=== PATIENT | male | born 1990 | race Caucasian/White ===

== ENCOUNTER 2018-01-02 14:28 | Emergency (ER) | payer BC, OTHER ==
[~2018-01-02] VITALS: Ht 175.3 cm; Wt 63.5 kg
--- NOTE | ~2018-01-02 | EKG ---
[place] [address] [facility] [place] [address] ELECTROCARDIOGRAM REPORT Name: WANDA COLORADO [facility] [id number] Admission: 01/02/18 Attend Phys: Discharge: Date of : 89 Report #: [id number] THIS REPORT FOR: //name// [facility] ED Test Date: 2018-01-02 Test Time: 14:46:58 Pat Name: WANDA COLORADO Department: Room: Gender: M Branch Or Department Chief Librarian: BALJITAsha : 1990 Requested By: Patt Downing Order Number: [id number] MD: Tio Singh Measurements Intervals [place] Rate: 118 P: 59 CA: 146 QRS: 44 QRSD: 99 T: 51 QT: 327 QTc: 459 Interpretive Statements Sinus tachycardia ST elev, probable normal early repol pattern No previous ECG available for comparison Electronically Signed On 01-02-2018 16:42:51 VOLUNTEER SERVICES SUPERVISOR by Tio Singh [email or web address] <ELECTRONICALLY SIGNED> By: Tio Singh MD 01/02/18 1642 1446 1446 MD JENNIFER Daigle
--- NOTE | ~2018-01-02 | EKG ---
[address] [address] ELECTROCARDIOGRAM REPORT Name: LANDENJCWANDA MENDEZ [facility] [id number] Admission: 01/02/18 Attend Phys: Discharge: Date of : [birth year] Report #: [id number] THIS REPORT FOR: //name// [facility] ED Test Date: 2018-01-02 Test Time: 14:36:06 Pat Name: WANDA COLORADO Department: Room: Gender: Medicaid Biller: BALJITAsha : 1990 Requested By: Patt Downing Order Number: [id number] MD: Tio Singh Measurements Intervals [place] Rate: 221 P: AR: QRS: 54 QRSD: 81 T: 61 QT: 245 QTc: 471 Interpretive Statements SVT Electronically Signed On 01-02-2018 16:42:37 DIESEL ENGINE TESTER by Tio Singh [email or web address] <ELECTRONICALLY SIGNED> By: Tio Singh MD 01/02/18 1642 1436 1436 Tio Singh MD /EPI
[2018-01-02] MEDS ORDERED: KLOR-CON 1010 MEQ PO (14:48)
[2018-01-02] MEDS ORDERED: HUMIRA10 MG/0.1 (14:49)
[2018-01-02] MEDS ORDERED: PRILOSEC 20 MG20 MG PO (14:50)
[2018-01-02 14:54] LABS: ABSOLUTE NEUTROPHILS 5.8 thou/uL (1.4-8.2); BASOPHILS 0.5 % (0.0-2.0); EOSINOPHILS 1.5 % (0.0-3.0); HEMATOCRIT 49.5 % (42.0-52.0); HEMOGLOBIN 17.2 gm/dL (14.0-18.0); LYMPHOCYTES 27.3 % (24.0-44.0); MCH 32.4 pg (26.0-34.0); MCHC 34.8 g/dL (28.0-37.0); MCV 93.1 fL (80.0-100.0); MONOCYTES 9.1 % (1.0-8.0); PLATELET COUNT 227 thou/uL (150-400); POLYS 61.6 % (36.0-66.0); RBC 5.32 mil/uL (4.50-6.00); WBC 9.4 thou/uL (4.0-11.0)
[2018-01-02 14:58] LABS: ANION GAP 9 mmol/L (7-16); BUN 11 mg/dL (7-18); CALCIUM 9.7 mg/dL (8.5-10.1); CHLORIDE 101 mmol/L (98-107); CO2 30 mmol/L (21-32); CREATININE 1.2 mg/dL (0.7-1.3); GLUCOSE 112 mg/dL (74-106); POTASSIUM 3.5 mmol/L (3.5-5.1); SODIUM 140 mmol/L (136-145)
[2018-01-02 15:07] LABS: TROPONIN-I <0.06 ng/mL (<0.06)
[2018-01-02 15:46] LABS: AMP/METHAMP Negative (Negative); BARBITURATES Negative (Negative); BENZODIAZEPINES Negative (Negative); COCAINE Negative (Negative); METHADONE Negative (Negative); OPIATES Negative (Negative); PCP Negative (Negative)
[2018-01-02] MEDS ORDERED: LOPRESSOR25 PO (16:16)
== END 2018-01-02 16:45 | disposition home or self-care (01) ==
LOC: ER 14:28
PROVIDERS: Student in an Organized Health Care Education/Training Program
DX: I47.1 Supraventricular tachycardia (principal); F17.210 Nicotine dependence, cigarettes, uncomplicated; K50.90 Crohn's disease, unspecified, without complications; Z87.442 Personal history of urinary calculi

== ENCOUNTER → 2018-01-16 | Outpatient (CLI) | payer BC, OTHER ==
[~2018-01-16] MED LIST: HUMIRA10 MG/0.1; KLOR-CON 1010 MEQ PO; LOPRESSOR25 PO; PRILOSEC 20 MG20 MG PO
--- NOTE | ~2018-01-16 | 2DMMODE ---
[facility] [place] [address] 2 D/M-MODE ECHOCARDIOGRAM Name: WANDA COLORADO Room #: [facility]#: [id number] Admission: 01/16/18 Attend Phys: Tio Singh Discharge: Date of : 89 Date of Service: 01/16/18 1551 Report #: [id number] THIS REPORT FOR: //name// APPROVED REPORT Study performed: 01/16/2018 15:01:31 EXAM: Comprehensive 2D, Doppler, and color-flow Echocardiogram Patient Location: Out-Patient Status: routine BSA: 1.78 HR: 79 bpm BP: 140/78 mmHg Other Information Study Quality: Good Indications SVT 2D Dimensions RVDd: 25.03 mm IVSd: 7.75 (7-11mm) LVOT Diam: 25.62 (18-24mm) LVDd: 48.48 mm PWd: 9.25 (7-11mm) Ascending Ao: 28.30 (22-36mm) LVDs: 33.39 (25-40mm) Aortic Root: 29.18 mm IVC: 12.00 mm Volumes Left Atrial Volume (Systole) Single Plane 4CH: 20.65 mL Single Plane 2CH: 31.76 mL LA ESV Index: 17.00 mL/m2 Aortic Valve AoV Peak Nile.: 1.01 m/s AO Peak Gr.: 4.06 mmHg LVOT Max P.08 mmHg LVOT Max V: 0.88 m/s EDYTA Vmax: 4.49 cm2 Mitral Valve E/A Ratio: 1.4 MV Decel. Time: 152.45 ms MV E Max Nile.: 0.77 m/s MV A Nile.: 0.55 m/s [facility] [place] [address] 2 D/M-MODE ECHOCARDIOGRAM Name: WANDA COLORADO Room #: [facility]#: [id number] Admission: 01/16/18 Attend Phys: Tio Singh Discharge: Date of : 89 Date of Service: 01/16/18 1551 Report #: [id number] MV PHT: 44.21 ms IVRT: 89.97 ms Pulmonary Valve PV Peak Nile.: 1.01 m/s PV Peak Gr.: 4.08 mmHg Pulmonary Vein P Vein S: 0.79 m/s P Vein A: 0.10 m/s P Vein D: 0.55 m/s P Vein A Dur.: 78.4 msec P Vein S/D Ratio: 1.44 Tricuspid Valve TR Peak Nile.: 2.12 m/s RAP Estimate: 5.00 mmHg TR Peak Gr.: 17.97 mmHg PA Pressure: 23.00 mmHg Left Ventricle The left ventricle is normal size. There is normal left ventricular wall thickness. The left ventricular systolic function is normal. The left ventricular ejection fraction is within the normal range. LVEF is 60-65%. The left ventricular diastolic function is normal. Right Ventricle The right ventricle is normal size. The right ventricular systolic function is normal. Atria The left atrium size is normal. The right atrium size is normal. Aortic Valve The aortic valve is normal in structure. No aortic regurgitation is present. There is no aortic valvular stenosis. Mitral Valve The mitral valve is normal in structure. Trace mitral regurgitation. No evidence of mitral valve stenosis. Tricuspid Valve The tricuspid valve is normal in structure. Trace tricuspid regurgitation. PAP is estimated at 23 mmHg. Pulmonic Valve The pulmonary valve is normal in structure. Trace to mild pulmonic regurgitation. [address] [address] 2 D/M-MODE ECHOCARDIOGRAM Name: LANDENJCVANESSAWANDA PAULINE Room #: REG Jean-Paul#: [id number] Admission: 01/16/18 Attend Phys: [facility] Discharge: Date of : 89 Date of Service: 01/16/18 1551 Report #: [id number] Great Vessels The aortic root is normal in size. IVC is normal in size and collapses >50% with inspiration. Pericardium There is no pericardial effusion. <Conclusion> The left ventricle is normal size. There is normal left ventricular wall thickness. The left ventricular systolic function is normal. The left ventricular diastolic function is normal. The right ventricle is normal size. The left atrium size is normal. The right atrium size is normal. The aortic valve is normal in structure. Trace mitral regurgitation. Trace tricuspid regurgitation. PAP is estimated at 23 mmHg. <ELECTRONICALLY SIGNED> By: Brian Ambrocio MD 01/16/18 155 [id number] 155 Brian Ambrocio MD /INF
== END ==
LOC: CV 08:22
DX: I47.1 Supraventricular tachycardia (principal)

== ENCOUNTER → 2018-01-18 | Outpatient (CLI) | payer BC, OTHER ==
[~2018-01-18] VITALS: Ht 175.3 cm; Wt 63.5 kg
[~2018-01-18] MED LIST changes: +ASPIR 8181 MG PO
--- NOTE | ~2018-01-18 | P ---
[facility] [place] [address] PROCEDURE REPORT Name: WANDA COLORADO Room #: REG [facility]#: [id number] Admission: 01/18/18 Attend Phys: Tio Singh MD Discharge: Date of : [birth year] Report #: [id number] THIS REPORT FOR: //name// CC: [facility] physician/PCP Tio Singh PREOPERATIVE DIAGNOSIS: SVT. 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 PROCEDURES PERFORMED: 1. SVT ablation, CPT code 95861. 2. EP with left atrial pacing and recording, CPT code 54330. 3. 3D mapping, CPT code 39667. HISTORY OF PRESENT ILLNESS: The patient is a 27-year-old male who had an episode of palpitations and was found to be in supraventricular tachycardia and it was terminated with IV adenosine. He is here for SVT ablation. ANESTHESIA: The patient underwent MAC anesthesia with no anesthesia related complications. PROCEDURE: The patient underwent informed consent where we discussed the details of the procedure including the risks, which include but not limited to bleeding, vascular damage, cardiac perforation as well as stroke or NE. He understood these risks and is willing to proceed. The patient was brought to the EP laboratory in a fasting and unsedated state and prepped and draped in a sterile fashion. Preablation, the patient was in sinus rhythm with a resting heart rate of 100-110 beats per minute. I then obtained access to the bilateral femoral veins. I injected lidocaine prior to access and placed an 8 and 6-Honduran short sheath in the right femoral vein and a 6 and 7-Honduran short sheath in the left femoral vein using the modified Seldinger technique. Next, three quadripolar catheters were placed at the HRA, His and RV position and decapolar catheter was easily positioned into the coronary sinus. Next a basic EP study was performed. At baseline, the patient was in sinus rhythm with a sinus cycle length of 520 milliseconds, LA interval 120 milliseconds, QRS duration 98 milliseconds, QT interval 360 milliseconds, AH interval 90 milliseconds and HV interval of 35 milliseconds. Of note, with catheter manipulation, the patient went into SVT with a tachycardia cycle length of 290 milliseconds, a septal VA time of 35 milliseconds. I attempted to entrain this, but I terminated it. Next, I continued with my EP study and atrial pacing was performed from the high right atrium and the left atrium via the coronary sinus catheter. AV block was noted at 260 milliseconds. Atrial ERP was noted at 170 milliseconds at a [address] cycle length. Next with double atrial extrastimuli, the [facility] [address] [place] [address] PROCEDURE REPORT Name: WANDA COLORADO PAULINE Room #: REG [facility] Jean-Paul#: [id number] Admission: 01/18/18 Attend Phys: Tio Singh MD Discharge: Date of : 89 Report #: [id number] patient went into SVT again with a tachycardia cycle length of 290 milliseconds and a septal VA time of 35 milliseconds. Ventricular entrainment was performed and there was a VAHV response consistent with typical AV edi reentrant tachycardia. I then terminated the tachycardia. Ventricular pacing was performed and VA block was noted at 260 milliseconds. Single ventricular extrastimuli were delivered and VA ERP was noted at 200 milliseconds at a [address] cycle length and VA conduction was both midline and decremental. 3D MAPPING AND ABLATION: Next, I removed by HRA catheter and the 8-Honduran short sheath and exchanged this for an SR0 sheath and a 4-mm Biosense Grace ablation catheter. Next, a detailed 3D map and geometry was created. I tagged the His bundle slow pathway and the coronary sinus ostium. Next, ablation was performed at 50 bain and 55 degrees. I performed three initial ablation lesions in the area of signals that were consistent with a slow pathway, but I did not get any significant junctionals. The patient did have sinus tachycardia, so I thought maybe this was making seeing junctional somewhat challenging. So I therefore performed post-ablation testing for a period of 30 minutes and then the patient went back into AV edi reentrant tachycardia again. Therefore, I went back in with the ablation catheter and performed additional four lesions, which were slightly higher than the other lesions. These had nice sharp signals consistent with slow pathway potential just outside of the coronary sinus ostium. These four lesions had frequent slow junctionals. Post-ablation testing was then performed again. We tested for a period of 30 minutes and could no longer induce SVT. AV block was noted at 260 milliseconds. AV edi ERP was noted at 210 milliseconds at a [address] cycle length. I performed aggressive atrial and ventricular pacing maneuvers. We continued with double extrastimuli, which had induced the tachycardia before and SVT was no longer inducible. I did not use isoproterenol as his heart rates were fast enough and his conduction was good enough at baseline. Post-ablation, the patient was in sinus rhythm with sinus cycle length of 460 milliseconds, LA interval 120 milliseconds, QRS duration 80 milliseconds, QT interval 300 milliseconds, AH interval 70 milliseconds and HV interval of 36 milliseconds. As such, all catheters and sheaths were pulled. Hemostasis was obtained and the patient awoke neurologically and hemodynamically intact. No complications and no significant bleeding. CONCLUSIONS: 1. Successful ablation of typical AV edi reentrant tachycardia. 2. Normal SA edi function. 3. Normal AV edi function. [facility] [address] [place] [address] PROCEDURE REPORT Name: WANDA COLORADO Room #: [facility] Jeong#: [id number] Admission: 01/18/18 Attend Phys: Tio Singh MD Discharge: Date of : 89 Report #: [id number] 4. Normal His-Purkinje function. 5. No other inducible arrhythmias. By: [id number] Tio Singh MD /nt
[2018-01-18 06:54] VITALS: BP 127/79
[2018-01-18 07:12] LABS: ABSOLUTE NEUTROPHILS 2.2 thou/uL (1.4-8.2); BASOPHILS 1.2 % (0.0-2.0); EOSINOPHILS 6.1 % (0.0-3.0); HEMATOCRIT 44.4 % (42.0-52.0); HEMOGLOBIN 15.4 gm/dL (14.0-18.0); LYMPHOCYTES 46.4 % (24.0-44.0); MCH 32.5 pg (26.0-34.0); MCHC 34.8 g/dL (28.0-37.0); MCV 93.3 fL (80.0-100.0); MONOCYTES 9.5 % (1.0-8.0); PLATELET COUNT 189 thou/uL (150-400); POLYS 36.8 % (36.0-66.0); RBC 4.75 mil/uL (4.50-6.00); RDW 12.1 % (10.5-14.5); WBC 6.1 thou/uL (4.0-11.0)
[2018-01-18 07:15] LABS: CALCIUM 9.7 mg/dL (8.5-10.1); POTASSIUM 3.7 mmol/L (3.5-5.1)
[2018-01-18 07:21] LABS: ALBUMIN 4.3 g/dL (3.4-5.0); TOTAL BILIRUBIN 0.4 mg/dL (<0.1-1.0); TOTAL PROTEIN 7.6 g/dL (6.4-8.2)
[2018-01-18 07:22] LABS: INR 1.1; PROTIME 11.1 Seconds (9.3-11.4)
== END | disposition home or self-care (01) ==
LOC: CATH 06:32
PROVIDERS: Internal Medicine Cardiovascular Disease
DX: I47.1 Supraventricular tachycardia (principal); F17.210 Nicotine dependence, cigarettes, uncomplicated; Z79.82 Long term (current) use of aspirin; Z79.899 Other long term (current) drug therapy; Z79.01 Long term (current) use of anticoagulants
CPT/HCPCS: 70005

== ENCOUNTER 2018-02-21 10:08 | Emergency (ER) | payer BC, OTHER ==
[~2018-02-21] VITALS: Ht 175.3 cm; Wt 63.5 kg
[2018-02-21 10:39] LABS: HEMATOCRIT 45.1 % (42.0-52.0); HEMOGLOBIN 15.5 gm/dL (14.0-18.0); MCH 32.2 pg (26.0-34.0); MCHC 34.4 g/dL (28.0-37.0); MCV 93.6 fL (80.0-100.0); RBC 4.82 mil/uL (4.50-6.00); RDW 11.8 % (10.5-14.5); WBC 5.5 thou/uL (4.0-11.0)
[2018-02-21 10:43] LABS: CALCIUM 9.1 mg/dL (8.5-10.1); POTASSIUM 3.8 mmol/L (3.5-5.1)
[2018-02-21 10:49] LABS: ALBUMIN 4.3 g/dL (3.4-5.0); TOTAL BILIRUBIN 0.3 mg/dL (<0.1-1.0); TOTAL PROTEIN 7.9 g/dL (6.4-8.2)
[2018-02-21] MEDS ORDERED: ZOFRAN ODT4 MG PO (11:46)
[2018-02-21] MEDS ORDERED: PERCOCET PO (11:46)
[2018-02-21 12:21] VITALS: BP 108/69
== END 2018-02-21 18:24 | disposition home or self-care (01) ==
LOC: ER 10:08
PROVIDERS: Emergency Medicine
DX: R11.0 Nausea (principal); N20.1 Calculus of ureter; F17.210 Nicotine dependence, cigarettes, uncomplicated

== ENCOUNTER 2018-06-16 17:42 | Emergency (ER) | payer BC, OTHER ==
[~2018-06-16] VITALS: Ht 175.3 cm; Wt 63.5 kg
[~2018-06-16 17:42] MED LIST changes: +PERCOCET PO; +ZOFRAN ODT4 MG PO
[2018-06-16 18:21] LABS: ABSOLUTE NEUTROPHILS 5.8 thou/uL (1.4-8.2); BASOPHILS 0.8 % (0.0-2.0); EOSINOPHILS 1.7 % (0.0-3.0); HEMATOCRIT 43.8 % (42.0-52.0); HEMOGLOBIN 15.1 gm/dL (14.0-18.0); LYMPHOCYTES 23.9 % (24.0-44.0); MCH 31.6 pg (26.0-34.0); MCHC 34.5 g/dL (28.0-37.0); MCV 91.4 fL (80.0-100.0); MONOCYTES 6.9 % (1.0-8.0); PLATELET COUNT 230 thou/uL (150-400); POLYS 66.7 % (36.0-66.0); RBC 4.79 mil/uL (4.50-6.00); RDW 11.7 % (10.5-14.5); WBC 8.7 thou/uL (4.0-11.0)
[2018-06-16 18:21] LABS: URINE BILIRUBIN NEGATIVE (Negative); URINE BLOOD 1+ (Negative); URINE CLARITY CLEAR; URINE COLOR YELLOW; URINE GLUCOSE-RANDOM* NEGATIVE (Negative); URINE KETONES NEGATIVE (Negative); URINE LEUKOCYTES TRACE (Negative); URINE NITRITE NEGATIVE (Negative); URINE PROTEIN (DIPSTICK) NEGATIVE (Negative); URINE UROBILINOGEN 0.2 E.U./dl (0.2-1.0)
[2018-06-16 18:22] LABS: CALCIUM 9.1 mg/dL (8.5-10.1); POTASSIUM 3.8 mmol/L (3.5-5.1)
[2018-06-16 18:27] LABS: CASTS None Seen /LPF (None Seen); SQUAMOUS 0-3 Few /LPF (0-3); URINE WBC 6-15 Few /HPF (0-5)
[2018-06-16 18:28] LABS: AMORPHOUS PHOSPHATES Moderate /LPF (None Seen); BACTERIA None Seen /HPF (None Seen); URINE RBC 3-10 Few /HPF (0-2)
[2018-06-16 18:28] LABS: ALBUMIN 4.5 g/dL (3.4-5.0); TOTAL BILIRUBIN 0.5 mg/dL (<0.1-1.0); TOTAL PROTEIN 7.7 g/dL (6.4-8.2)
[2018-06-16] MEDS ORDERED: TRAMADOL 50 MG50 MG PO (18:49)
[2018-06-16] MEDS ORDERED: FLOMAX0.4 MG PO (18:49)
[2018-06-16] MEDS ORDERED: NAPROSYN500 MG PO (18:49)
[2018-06-16] MEDS ORDERED: HYDROCHLOROTH12.5 M1 PO (19:09)
[2018-06-16 19:36] VITALS: BP 119/60
== END 2018-06-16 19:37 | disposition home or self-care (01) ==
LOC: ER 17:42
PROVIDERS: Emergency Medicine
DX: N20.0 Calculus of kidney (principal); F17.210 Nicotine dependence, cigarettes, uncomplicated

== ENCOUNTER 2018-06-29 07:40 | Emergency (ER) | payer BC, OTHER ==
[~2018-06-29] VITALS: Ht 175.3 cm; Wt 63.5 kg
[~2018-06-29 07:40] MED LIST changes: +FLOMAX0.4 MG PO; +HYDROCHLOROTH12.5 M1 PO; +NAPROSYN500 MG PO; +TRAMADOL 50 MG50 MG PO
[2018-06-29] MEDS ORDERED: KEFLEX500 M1 PO (08:06)
[2018-06-29] MEDS ORDERED: MOBIC15 MG PO (08:06)
[2018-06-29 08:20] VITALS: BP 146/89
== END 2018-06-29 08:21 | disposition home or self-care (01) ==
LOC: ER 07:40
DX: M70.22 Olecranon bursitis, left elbow (principal); Z87.891 Personal history of nicotine dependence; Y93.89 Activity, other specified

== ENCOUNTER 2020-07-21 08:35 | Emergency (ER) | payer BC, OTHER ==
[~2020-07-21] VITALS: Ht 175.3 cm; Wt 65.8 kg
[~2020-07-21 08:35] MED LIST changes: +KEFLEX500 M1 PO; +MOBIC15 MG PO
[2020-07-21 08:53] LABS: URINE BILIRUBIN NEGATIVE (Negative); URINE BLOOD 3+ (Negative); URINE CLARITY CLOUDY; URINE COLOR YELLOW; URINE GLUCOSE-RANDOM* NEGATIVE (Negative); URINE KETONES NEGATIVE (Negative); URINE NITRITE-REFLEX NEGATIVE (Negative); URINE PROTEIN (DIPSTICK) 1+ (Negative); URINE SPECIFIC GRAVITY >= 1.030 (1.005-1.035); URINE UROBILINOGEN 0.2 E.U./dl (0.2-1.0)
[2020-07-21 08:55] LABS: URINE LEUKOCYTES-REFLEX 2+ (Negative)
[2020-07-21 09:22] LABS: URINE WBC-REFLEX >25 Many /HPF (0-5)
[2020-07-21 09:24] LABS: CASTS None Seen /LPF (None Seen); CRYSTALS None Seen /LPF (None Seen); SQUAMOUS 0-3 Few /LPF (0-3)
[2020-07-21 09:25] LABS: MUCUS >6 Heavy strn/LPF (None Seen)
[2020-07-21 09:41] LABS: ABSOLUTE NEUTROPHILS 2.7 thou/uL (1.4-8.2); BASOPHILS 0.9 % (0.0-2.0); HEMATOCRIT 43.2 % (42.0-52.0); HEMOGLOBIN 15.1 gm/dL (14.0-18.0); LYMPHOCYTES 38.8 % (24.0-44.0); MCH 32.9 pg (26.0-34.0); MCHC 34.9 g/dL (28.0-37.0); MONOCYTES 8.9 % (1.0-8.0); PLATELET COUNT 236 thou/uL (150-400); POLYS 47.4 % (36.0-66.0); RBC 4.59 mil/uL (4.50-6.00); RDW 12.4 % (10.5-14.5); WBC 5.7 thou/uL (4.0-11.0)
[2020-07-21 09:46] LABS: CALCIUM 8.9 mg/dL (8.5-10.1); CREATININE 0.9 mg/dL (0.7-1.3); POTASSIUM 3.7 mmol/L (3.5-5.1)
[2020-07-21 09:52] LABS: ALBUMIN 3.8 g/dL (3.4-5.0); TOTAL BILIRUBIN 0.4 mg/dL (0.2-1.0); TOTAL PROTEIN 7.5 g/dL (6.4-8.2)
[2020-07-21] MEDS ORDERED: NORCO5 PO (12:39)
[2020-07-21] MEDS ORDERED: CEPHALEXIN500 MG PO (12:39)
[2020-07-21 13:24] VITALS: BP 147/105
== END 2020-07-21 13:26 | disposition home or self-care (01) ==
LOC: ER 08:35
PROVIDERS: Emergency Medicine
DX: N13.2 Hydronephrosis with renal and ureteral calculous obstruction (principal); N39.0 Urinary tract infection, site not specified; Z87.442 Personal history of urinary calculi; Z79.2 Long term (current) use of antibiotics; Z79.899 Other long term (current) drug therapy; Z87.891 Personal history of nicotine dependence